=== PATIENT | female | born 1980 | race Caucasian/White ===

== ENCOUNTER 2017-03-28 03:16 | Emergency (ER) | payer BC ==
[2017-03-28 03:22] VITALS: BP 136/83; BMI 32.0
--- NOTE | 2017-03-28 03:46 | DR.GENAD ---
HPI - PCP Primary Care Physician: tashia - Complaint/Symptoms Chief Complaint Doctors Comments: Patient presents with complaint of cough, chest heaviness, vomited x 2 and a headache. Took Robitussin DM for the cough but not helpful. Patient states that wiith her cough she sometimes feels that her chest is becomes heavy. She denies a history of cardiopulmonary disease. Recently quit job not enough pay. 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 who are also complaining of illness. Chief Complaint:: "for the last 5 days i have felt like i have something on my chest, heavy and i just feel like i can't breathe. i started with a cough tonight and tonight i threw up once when i couldn't catch my breath. when i walk i get dizzy and i have had a killer headache." - Mode of Arrival Mode of Arrival: Ambulatory - Timing Onset of Chief Complaint: 03/23/17 PMH - PMH Past Medical History: Yes Past Medical History: Anxiety Past Medical History Comment: lupus ? Past Surgical History: Yes Surgical History: , [employer] Surgery - Family History History of Family Medical Conditions: No - Social History Does patient currently use any type of tobacco product: No Have you used tobacco products in the last 12 months: No Type of Tobacco Use: None Does any household member use tobacco: No Alcohol Use: None Do you use any recreational Drugs:: No Lives Where: Home - infectious screening Have you traveled outside the country in the last 6 months?: No Isolation: Standard ROS - Review of Systems Constitutional: No Symptoms Reported Eyes: No Symptoms Reported ENTM: No Symptoms Reported Respiratoy: Non-Productive Cough Cardiovascular: No Symptoms Reported, Other (heaviness) Gastrointestinal/Abdominal: No Symptoms Reported Genitourinary: No Symptoms Reported Neurological: Headache Musculoskeletal: No Symptoms Reported PE - Vital Signs Vitals: Temperature 98.4 F Pulse Rate 88 Respiratory Rate 20 Blood Pressure 136/83 O2 Sat by Pulse Oximetry 98 - General General Appearance: Alert, In No Apparent Distress - Head Head Exam: Normal Inspection, Atraumatic - Eyes Eye exam: Normal Appearance, PERRL, EOMI - ENT ENT Exam: Normal Exam, Normal Oropharynx External Ear Exam: Normal External Inspection TM/Canal Exam: Bilateral Normal Nose Exam: Normal Nose Exam, Sinus Tenderness Mouth Exam: Normal Inspection Throat Exam: Normal Inspection - Neck Neck Exam: Normal Inspection, Full ROM - Chest Chest Inspection: Normal Inspection - Respiratory Respiratory Exam: Normal Lung Sounds Bilat Respiratory Exam: Bilateral Clear to Auscultation - Cardiovascular Cardiovascular Exam: Regular Rate - Abdominal Exam Abdominal Exam: Normal Inspection Abdominal Tenderness: negative: RUQ, RLQ, LUQ, LLQ, Epigastrium, Suprapubic, Diffuse, Mild, Moderate, Severe, Other - Extremities Extremities Exam: Normal Inspection, Full ROM - Back Back Exam: Normal Inspection, Full ROM - Neurologic Neurological Exam: Alert, Oriented X3, CN II-XII Intact - Psychiatric Psychiatric Exam: Normal Affect, Normal Mood - Skin Skin Exam: Warm, Dry, Intact ROR - Labs Reviewed Laboratory Results Reviewed?: Yes (influenza negative. ) - XRAY XRAY Interpreted by: Radiologist (chest No acute cardiopuulmonary disease) - Diagnosis Discharge Problem: URI (upper respiratory infection) Qualifiers: URI type: unspecified viral URI Qualified Code(s): J06.9 - Acute upper respiratory infection, unspecified - Discharge Plan Condition: Stable - Follow ups/Referrals Follow ups/Referrals: RADHA CORNEJO [Primary Care Provider] - 3 days - Instructions
[2017-03-28] MEDS ORDERED: TORADOL 60 MG VIAL IM ONE (03:50)
[2017-03-28] MEDS ORDERED: TORADOL 60 MG VIAL ONE (03:56)
[2017-03-28 04:10] LABS: BILIRUBIN,URINE NEGATIVE (NEGATIVE); BLOOD/HEMOGLOBIN,URINE 5+ (NEGATIVE); GLUCOSE, URINE NEGATIVE (NEGATIVE); KETONES,URINE 2+ (NEGATIVE); LEUKOCYTE ESTERASE ,URINE NEGATIVE (NEGATIVE); NITRITES,URINE NEGATIVE (NEGATIVE); PROTEIN,URINE NEGATIVE (NEGATIVE); UROBILINOGEN,URINE NORMAL (NORMAL)
[2017-03-28 04:12] LABS: BASOPHILS # (AUTO) 0.3 X10^3/uL (0.0-0.1); BASOPHILS % (AUTO) 3.1 % (0.2-1.0); EOSINOPHILS # (AUTO) 0.1 x10^3/uL (0.0-0.2); EOSINOPHILS % (AUTO) 1.4 % (0.9-2.9); HEMATOCRIT 39.7 % (36.0-47.0); HEMOGLOBIN 13.4 g/dL (12.0-16.0); LYMPHOCYTES # (AUTO) 1.6 X10^3/uL (1.3-2.9); LYMPHOCYTES % (AUTO) 18.7 % (21.0-51.0); MEAN CORPUSCULAR HEMOGLOBIN 27.4 pg (27.0-34.0); MEAN CORPUSCULAR HGB CONC 33.8 g/dL (33.0-35.0); MEAN PLATELET VOLUME 7.9 fL (7.4-11.0); MONOCYTES # (AUTO) 0.5 x10^3/uL (0.3-0.8); MONOCYTES % (AUTO) 5.9 % (0.0-13.0); NEUTROPHILS # (AUTO) 6.1 x10^3/uL (2.2-4.8); NEUTROPHILS % (AUTO) 70.9 % (42.0-75.0); PLATELET COUNT 308 X10^3/uL (150.0-450.0); RED CELL DISTRIBUTION WIDTH 13.6 % (11.6-16.5); WHITE BLOOD COUNT 8.6 X10^3/uL (3.6-10.0)
--- NOTE | 2017-03-28 04:13 | RAD ---
Chest, one-view Indication: Cough Comparison: 04/14/2014 Findings: Heart size is normal. No focal consolidation, significant effusion or pneumothorax is ident ified. There is no acute osseous abnormality. Impression: No acute cardiopulmonary abnormality. Reported By:
[2017-03-28 04:17] LABS: BLOOD UREA NITROGEN 13 mg/dL (7-18); CARBON DIOXIDE 28.6 mmol/L (21-32); CHLORIDE 100 mmol/L (98-107); CREATININE 0.68 mg/dL (0.55-1.02); SODIUM 136 mmol/L (136-145); eGFR BLACK RACES > 60 (>60); eGFR NON BLACK RACES > 60 (>60)
[2017-03-28 04:23] LABS: APPEARANCE,URINE CLEAR (CLEAR); COLOR,URINE YELLOW (YELLOW)
[2017-03-28 04:24] LABS: BACTERIA,URINE NEGATIVE /HPF (NEGATIVE); RBC,URINE RARE /HPF (NEGATIVE); SQUAMOUS EPITHELIAL CELL,UR FEW /HPF (NEGATIVE)
== END 2017-03-28 04:56 | disposition home or self-care (01) ==
LOC: ER 03:28
DX: J06.9 Acute upper respiratory infection, unspecified (principal)
CPT/HCPCS: 36415; 71045; 80048; 81001; 85025; 87502; 96372; 99282; 99283; J1885